=== PATIENT | male | born 1985 | race Hispanic/Latino ===

== ENCOUNTER → 2018-06-08 | Outpatient (CLI) | payer BC ==
--- NOTE | 2018-06-14 13:22 | Polysomnography ---
DATE OF STUDY: June 08, 2018 INTERPRETATION OF DIAGNOSTIC POLYSOMNOGRAM IMPRESSION 1. Moderate obstructive sleep apnea with sleep disorder breathing with respiratory distress index of 24.6. 2. Snoring was noted. RECOMMENDATIONS 1. Initiate titration for continuous positive airway pressure therapy (CPAP). 2. ENT evaluation to consider surgical option to correct sleep disorder breathing. 3. Avoid consumption of alcohol or sedatives before bedtime. 4. Avoid caffeine and exercise within 3-4 hours prior to bedtime. 5. Weight reduction to ideal body weight. 6. Advised the patient that excessive daytime sleepiness could pose a danger to the patient and others while driving or operating heavy machinery, and to use caution until symptoms are treated and improved. 7. Patient to follow up with physician to discuss results of study. Job#: [id number] LETTY
== END ==
LOC: SLEEP 20:14
PROVIDERS: ATTEND Otolaryngology
DX: G47.33 Obstructive sleep apnea (adult) (pediatric) (principal)
CPT/HCPCS: 95810